=== PATIENT | male | born 1990 | race Two or more races ===

== ENCOUNTER 2018-02-13 01:26 | Emergency (ER) | payer SELFPAY ==
[~2018-02-13] VITALS: Ht 172.7 cm; Wt 63.5 kg
[2018-02-13] VITALS (18 sets, daily range): BP systolic 99–130; BP diastolic 56–88
[~2018-02-13 01:26] MED LIST: NKM
[2018-02-13] MEDS ORDERED: LORazepam Inj 2mg/ml 1ml ONE (01:37)
[2018-02-13] MEDS ORDERED: DiphenhydrAMINE 50mg/ml Inj ONE (01:38)
[2018-02-13] MEDS ORDERED: Haloperidol 5mg/ml Inj ONE (01:38)
[2018-02-13] MEDS ORDERED: Haloperidol 5mg/ml Inj IM ONE (01:45)
[2018-02-13] MEDS ORDERED: DiphenhydrAMINE 50mg/ml Inj IM ONE (01:45)
[2018-02-13] MEDS ORDERED: LORazepam Inj 2mg/ml 1ml IM ONE (01:45)
--- NOTE | 2018-02-13 02:13 | Emergency Room Report ---
History of Present Illness General Chief Complaint: Substance Abuse Source: EMS Present Illness HPI Patient presents by paramedics and police department Bizarre activity and agitated Patient had been reported to be using methamphetamine Patient repeats several phrases throughout his presentation Otherwise screaming yelling And thrashing around on the gurney Does not answer most questions Cannot obtain history of any chest pain Patient does not provide him with any past mental history Allergies: Coded Allergies: No Known Allergies (Unverified , 02/13/18) Patient History Limited by: medical condition Past Medical History: see triage record Pertinent Family History: unable to obtain Reviewed Nursing Documentation: PMH: Agreed; PSxH: Agreed Review of Systems All Other Systems: limited - Other than the ones mentioned in the history of present illness all others are reviewed however they do stay limited due to the patient's mental status Physical Exam Vital Signs Date Time Temp Pulse Resp B/P (MAP) Pulse Ox O2 Delivery O2 Flow Rate FiO2 02/13/18 01:26 98.0 100 20 141/96 100 Room Air 98.1 Sp02 EP Interpretation: reviewed, normal General Appearance: severe distress - Agitated Head: normocephalic, atraumatic Eyes: bilateral eye PERRL, bilateral eye EOMI ENT: normal pharynx, dry mucus membranes Neck: supple Respiratory: lungs clear, no respiratory distress, no retraction Cardiovascular #1: tachycardia Gastrointestinal: non tender, soft Musculoskeletal: normal inspection - Patient does not follow commands however moving all extremities equally Neurologic: alert, responsive Psychiatric: other - Extremely agitated Skin: normal color, no rash Lymphatic: no adenopathy Medical Decision Making Diagnostic Impression: Primary Impression: Substance abuse ER Course Patient initially presents fairly aggressive and agitated Patient appears to be under influence of possible drugs He is positive for amphetamine Patient required initial physical and chemical restraint At this time blood work otherwise benign Patient requiring further sobering effect from intake And will have reevaluation prior to final disposition at this time has not made any remarks regarding homicidal or suicidal thoughts, and patient appears to be having reaction to drug ingestion Labs Test 02/13/18 02:20 White Blood Count 13.4 K/UL (4.8-10.8) Red Blood Count 5.07 M/UL (4.70-6.10) Hemoglobin 16.0 G/DL (14.2-18.0) Hematocrit 47.3 % (42.0-52.0) Mean Corpuscular Volume 93 FL (80-99) Mean Corpuscular Hemoglobin 31.7 PG (27.0-31.0) Mean Corpuscular Hemoglobin Concent 33.9 G/DL (32.0-36.0) Red Cell Distribution Width 11.3 % (11.6-14.8) Platelet Count 248 K/UL (150-450) Mean Platelet Volume 7.0 FL (6.5-10.1) Neutrophils (%) (Auto) 81.5 % (45.0-75.0) Lymphocytes (%) (Auto) 12.5 % (20.0-45.0) Monocytes (%) (Auto) 5.4 % (1.0-10.0) Eosinophils (%) (Auto) 0.1 % (0.0-3.0) Basophils (%) (Auto) 0.5 % (0.0-2.0) Sodium Level 139 MMOL/L (136-145) Potassium Level 3.4 MMOL/L (3.5-5.1) Chloride Level 98 MMOL/L (98-107) Carbon Dioxide Level 13 MMOL/L (21-32) Anion Gap 28 mmol/L (5-15) Blood Urea Nitrogen 16 mg/dL (7-18) Creatinine 1.8 MG/DL (0.55-1.30) Estimat Glomerular Filtration Rate 46.2 mL/min (>60) Glucose Level 224 MG/DL (74-106) Calcium Level 9.2 MG/DL (8.5-10.1) Total Bilirubin 0.7 MG/DL (0.2-1.0) Aspartate Amino Transf (AST/SGOT) 34 U/L (15-37) Alanine Aminotransferase (ALT/SGPT) 26 U/L (12-78) Alkaline Phosphatase 75 U/L (46-116) Total Protein 8.0 G/DL (6.4-8.2) Albumin 4.4 G/DL (3.4-5.0) Globulin 3.6 g/dL Albumin/Globulin Ratio 1.2 (1.0-2.7) Salicylates Level 1.3 ug/mL (2.8-20) Urine Opiates Screen Negative (NEGATIVE) Acetaminophen Level < 2 MCG/ML (10-30) Urine Barbiturates Screen Negative (NEGATIVE) Phencyclidine (PCP) Screen Negative (NEGATIVE) Urine Amphetamines Screen Positive (NEGATIVE) Urine Benzodiazepines Screen Negative (NEGATIVE) Urine Cocaine Screen Negative (NEGATIVE) Urine Marijuana (THC) Screen Negative (NEGATIVE) Serum Alcohol < 3 mg/dL Rhythm Strip Diag. Results EP Interpretation: yes Rate: 110 Rhythm: no PVC's, no ectopy, other - Sinus tach Last Vital Signs Date Time Temp Pulse Resp B/P (MAP) Pulse Ox O2 Delivery O2 Flow Rate FiO2 02/13/18 01:26 98.0 100 20 141/96 100 Room Air 98.1 Signed Out To: Oncoming physician for reevaluation Karyn Salas DO Feb 13, 2018 02:13
[2018-02-13 02:36] LABS: BASOPHILS % (AUTO) 0.5 % (0.0-2.0); EOSINOPHILS % (AUTO) 0.1 % (0.0-3.0); HEMATOCRIT 47.3 % (42.0-52.0); LYMPHOCYTES % (AUTO) 12.5 % (20.0-45.0); MEAN CORPUSCULAR VOLUME 93 FL (80-99); MONOCYTES % (AUTO) 5.4 % (1.0-10.0); NEUTROPHILS % (AUTO) 81.5 % (45.0-75.0); PLATELET COUNT 248 K/UL (150-450); RED BLOOD COUNT 5.07 M/UL (4.70-6.10); RED CELL DISTRIBUTION WIDTH 11.3 % (11.6-14.8); WHITE BLOOD COUNT 13.4 K/UL (4.8-10.8)
[2018-02-13 02:41] LABS: ANION GAP 28 mmol/L (5-15); BLOOD UREA NITROGEN 16 mg/dL (7-18); CALCIUM 9.2 MG/DL (8.5-10.1); CARBON DIOXIDE 13 MMOL/L (21-32); CHLORIDE 98 MMOL/L (98-107); CREATININE 1.8 MG/DL (0.55-1.30); POTASSIUM 3.4 MMOL/L (3.5-5.1); SODIUM 139 MMOL/L (136-145)
[2018-02-13 02:46] LABS: ALANINE AMINOTRANSFERASE 26 U/L (12-78); ALBUMIN 4.4 G/DL (3.4-5.0); ALBUMIN/GLOBULIN RATIO 1.2 (1.0-2.7); ALKALINE PHOSPHATASE 75 U/L (46-116); ASPARTATE AMINO TRANSFERASE 34 U/L (15-37); BILIRUBIN,TOTAL 0.7 MG/DL (0.2-1.0)
== END 2018-02-13 09:01 | disposition home or self-care (01) ==
LOC: EDBD 01:26 → EMR 02:00
DX: F15.10 Other stimulant abuse, uncomplicated (principal)
CPT/HCPCS: 36415; 80053; 80307; 85025; 96360; 96372; 99284; G0480; J1200; J1630; 80329